=== PATIENT | male | born 1985 | race Two or more races ===

== ENCOUNTER → 2025-08-12 | Outpatient (CLI) | payer MEDICAID, SELFPAY ==
--- NOTE | 2025-08-12 16:26 | XR_ITS ---
EXAMINATION: Bilateral wrist 6 views TECHNIQUE: AP oblique lateral each wrist total 6 views Date and time: August 12, 2025, 1644 hours INDICATIONS: Bilateral wrist pain and stiffness 3 weeks. FINDINGS: Minimal osteopenia. Bilateral mild narrowing radiocarpal joints No fracture or dislocation involving either hand No erosive arthritis involving either hand No avascular necrosis IMPRESSION: Mild bilateral osteoarthritis radiocarpal joints
--- NOTE | 2025-08-12 16:26 | XR_ITS ---
Examination: Bilateral hands, 6 views. Technique: AP, Oblique, Lateral each hand total 6 views Date and time of exam: August 12, 2025, 1637 hours INDICATIONS: Bilateral hand pain and stiffness beginning 3 weeks ago no trauma Findings: Minimal juxta articular bony mineralization. No fracture or dislocation involving the either hand No erosive or other significant arthritic change IMPRESSION: No erosive or other significant arthritic change involving either hand
== END | disposition home or self-care (01) ==
PROVIDERS: PCP Nurse Practitioner Family; Referring Provider Nurse Practitioner Family; Visit Provider Nurse Practitioner Family
DX: M79.641 Pain in right hand (principal); M79.642 Pain in left hand; M19.032 Primary osteoarthritis, left wrist; M19.031 Primary osteoarthritis, right wrist
CPT/HCPCS: 73110; 73130